=== PATIENT | female | born 1955 | race Caucasian/White ===

== ENCOUNTER → 2017-12-15 | Outpatient (CLI) | payer OTHER ==
[~2017-12-15] MED LIST: ALEVE220 M1 PO; ARIXTRA; ARIXTRA SUBQ; ASPIRIN EC325 M1 PO; ASPIRIN325; CLARITIN-D 12 H1 TA2 PO; CLARITIN-D 24 H1 TA1 PO; DEXILANT30 MG PO; LISINOPRIL20 MG PO; OXYBUTYNIN 5 MG5 M1 PO; OXYCODONE HCL 55 MG PO; OXYCODONE HCL5 M1; PERCOCET 5-3251 EACH; PERCOCET 5-3251 EACH PO
== END ==
LOC: M.RAD 14:28
DX: Z12.31 Encounter for screening mammogram for malignant neoplasm of breast (principal)

== ENCOUNTER → 2018-12-16 | Outpatient (CLI) | payer OTHER | LOC: M.RAD 11:00 | DX: Z12.31 Encounter for screening mammogram for malignant neoplasm of breast (principal) ==

== ENCOUNTER → 2019-12-22 | Outpatient (CLI) | payer OTHER | LOC: M.RAD 12-21 09:50 | PROVIDERS: ATTEND Family Medicine | DX: Z12.31 Encounter for screening mammogram for malignant neoplasm of breast (principal) ==

== ENCOUNTER → 2020-12-24 | Outpatient (CLI) | payer OTHER | LOC: M.RAD 10:46 | PROVIDERS: ATTEND Family Medicine | DX: Z12.31 Encounter for screening mammogram for malignant neoplasm of breast (principal) ==